=== PATIENT | male | born 1980 | race Caucasian/White ===

== ENCOUNTER 2020-07-05 06:40 | Observation (INO) | payer OTHER, MEDICAID, SELFPAY ==
[2020-07-05] VITALS (19 sets, daily range): BP systolic 112–147; BP diastolic 76–99; PULSE 79–100; RESP 18–24; TEMP 35.9–36.6; O2SAT 99–100; BMI 36.5; BMI 80.4
--- NOTE | ~2020-07-05 | CT_ITS ---
EXAMINATION: CT brain wo con DATE: 07/05/2020 07:22 INDICATION: Syncope TECHNIQUE: Computed tomography (CT) of the head was performed without intravenous contrast. Sagittal and coronal reconstructions were performed. The mA was adjusted according to patient size. Iterative reconstruction technique was employed. The dose-length product was 605.33 mGy-cm. COMPARISON: None FINDINGS: No acute intracranial hemorrhage or acute infarction. Suggestion of a small arachnoid cyst along the left side of the anterior falx. Ventricles are normal and symmetric. No masses identified. The orbits , paranasal sinuses and mastoid air cells are normal. IMPRESSION: 1. Normal brain. No acute intracranial process. Reviewed, dictated and finalized at location A. E PRODUCTS SUPERVISOR
--- NOTE | ~2020-07-05 | US_ITS ---
EXAMINATION: US right upper quadrant DATE: 07/06/2020 09:58 INDICATION: Abnormal liver function tests TECHNIQUE: Multiple grayscale and Doppler ultrasound images of the abdomen were obtained. COMPARISON: None available FINDINGS: Bowel gas obscures visualization of the pancreas. The visualized portions of the pancreas a re unremarkable. The liver demonstrates increased echogenicity, heterogenous echotexture, and decreas ed through transmission. No surface nodularity. Normal hepatopetal flow in the main portal vein. The gallbladder is contracted but normal in appearance with no abnormal wall thickening, pericholecystic fluid or stones. The normal common bile duct measures 4 mm. There was no sonographic Naranjo sign. IMPRESSION: 1. Diffuse hepatic steatosis. Reviewed, dictated and finalized at location A. PRESS OPERATOR
--- NOTE | ~2020-07-05 | MR_ITS ---
EXAMINATION: MR cervical spine wo/w con DATE: 07/05/2020 14:07 INDICATION: Leg weakness. TECHNIQUE: Magnetic resonance imaging (MRI) of the cervical spine was performed without and with 20 m L MultiHance intravenous contrast. Sequences included sagittal and axial T2-weighted FSE, sagittal T2 -weighted FS FSE, and sagittal and axial T1-weighted FSE. Postcontrast sequences included sagittal an d axial T1-weighted FS FSE. COMPARISON: None FINDINGS: There is hypolordosis of cervical spine. Vertebral body heights and intervertebral disc hei ghts are normal. The spinal cord signal intensity is normal. The following disc levels are specifical ly discussed: C2-C3: The disc does not extend beyond the endplate margin. There is no uncovertebral joint osteoarth ritis. There is no facet joint osteoarthritis. There is no neural foraminal stenosis. There is no andi tral canal stenosis. C3-C4: The disc does not extend beyond the endplate margin. There is mild bilateral uncovertebral caden nt osteoarthritis. There is no facet joint osteoarthritis. There is no neural foraminal stenosis. The re is no central canal stenosis. C4-C5: The disc does not extend beyond the endplate margin. There is no uncovertebral joint osteoarth ritis. There is no facet joint osteoarthritis. There is no neural foraminal stenosis. There is no andi tral canal stenosis. C5-C6: The disc does not extend beyond the endplate margin. There is no uncovertebral joint osteoarth ritis. There is mild bilateral facet joint osteoarthritis. There is no neural foraminal stenosis. The re is no central canal stenosis. C6-C7: The disc does not extend beyond the endplate margin. There is no uncovertebral joint osteoarth ritis. There is no facet joint osteoarthritis. There is no neural foraminal stenosis. There is no andi tral canal stenosis. C7-T1: The disc does not extend beyond the endplate margin. There is no uncovertebral joint osteoarth ritis. There is no facet joint osteoarthritis. There is no neural foraminal stenosis. There is no andi tral canal stenosis. IMPRESSION: 1. Minimal cervical spondylosis. Reviewed, dictated and finalized at location B. OLOGIST
--- NOTE | ~2020-07-05 | XR_ITS ---
EXAMINATION: XR chest 1V DATE: 07/05/2020 07:25 INDICATION: Syncope TECHNIQUE: frontal view of the chest was obtained. COMPARISON: None FINDINGS: The lungs are clear with no focal airspace opacities, pulmonary edema, pleural effusion or pneumothor ax. The cardiomediastinal silhouette is normal. Visualized bones and soft tissues are unremarkable. IMPRESSION: 1. Normal chest radiograph. Reviewed, dictated and finalized at location A. T LIAISON IMPRESSION: 1. Normal chest radiograph.
--- NOTE | ~2020-07-05 | CT_ITS ---
EXAMINATION: CTA brain carotid DATE: 07/05/2020 08:52 INDICATION: Syncope. Dizziness. TECHNIQUE: Computed tomographic angiography (CTA) of the head was performed with 100 mL Omnipaque-350 intravenous contrast. CTA of the neck was performed with intravenous contrast. Automated exposure co ntrol and iterative reconstruction technique were employed. The dose-length product was 1205.52 mGy-c m. Maximum intensity projection and volume rendered 3D-reconstructions were created by the F[address] st on a separate workstation. COMPARISON: Head CT 07/05/2020 FINDINGS: HEAD CTA: There is no intracranial hemorrhage, acute infarction, or abnormal intracranial mass lesion . The ventricles are normal in size. The mastoid air cells are normal. The orbits are normal. There i s mild mucosal thickening in the maxillary sinuses. Left vertebral artery is dominant. There is no si gnificant stenosis of basilar artery or the posterior cerebral arteries. There is no significant sten osis of the intracranial internal carotid arteries or anterior or middle cerebral arteries. Anterior communicating artery is normal. The posterior communicating arteries are normal. There is no aneurysm . NECK CTA: There are no pathologically enlarged lymph nodes. There is no significant stenosis of the v ertebral arteries. There is no visible plaque in the proximal internal carotid arteries. There is 0% stenosis of the proximal right internal carotid artery relative to normal distal artery lumen diamete r (NASCET criteria). There is 0% stenosis of the proximal left internal carotid artery relative to no rmal distal artery lumen diameter. There is mild cervical spondylosis. IMPRESSION: 1. Normal brain. No aneurysm or significant intracranial arterial stenosis. 2. 0% stenosis of the proximal internal carotid arteries relative to normal distal artery lumen diame ters (NASCET criteria). Reviewed, dictated and finalized at location B. ORK CONTROLLER IMPRESSION: 1. Normal brain. No aneurysm or significant intracranial arterial stenosis. 2. 0% stenosis of the proximal internal carotid arteries relative to normal dis elina artery lumen diameters (NASCET criteria).
--- NOTE | ~2020-07-05 | MR_ITS ---
EXAMINATION: MR brain/brain stem wo/w con DATE: 07/05/2020 14:07 INDICATION: Leg weakness. Syncope. TECHNIQUE: Magnetic resonance imaging (MRI) of the brain and brainstem was performed without and with 20 mL MultiHance intravenous contrast. Sequences included sagittal and axial T1-weighted FSE, axial diffusion-weighted FS EPI, axial T2*-weighted GRE, axial T2-weighted FLAIR Propeller, and axial T2-we ighted Propeller. Postcontrast sequences included axial and coronal T1-weighted FSE. Apparent diffusi on coefficient (ADC) maps were created. COMPARISON: Head CTA 07/05/2020 FINDINGS: There is no intracranial hemorrhage, acute infarction, or abnormal intracranial mass lesion . The ventricles are normal in size. There is mild mucosal thickening in the paranasal. The mastoid a ir cells are normal. The orbits are normal. IMPRESSION: 1. Normal brain. Reviewed, dictated and finalized at location B. CIATE SCIENTIST IMPRESSION: 1. Normal brain.
--- NOTE | 2020-07-05 07:07 | ECG_ITS ---
Measurements Intervals [place] Rate: 93 P: 47 WA: 174 QRS: 26 QRSD: 95 T: 18 QT: 345 QTc: 430 Interpretive Statements SINUS RHYTHM INCOMPLETE RIGHT BUNDLE BRANCH BLOCK BORDERLINE ECG Electronically Signed On 07-05-2020 7:37:17 ULTRA SOUND TECHNICIAN by Joel Long D.O.
--- NOTE | 2020-07-05 07:13 | ED.GENADULT ---
HPI - General Adult General Chief complaint: Syncope Stated complaint: fall with loc tonight, multiple falls this week MANLEY Time Seen by Provider: 07/05/20 07:01 Source: RN notes reviewed History of Present Illness HPI narrative: Patient presents emergency department from home for syncope. Patient states this morning he was in the restroom and fell and he believed at the time he had only been on the ground for approximately 5 minutes however when he got up he had been on the ground for over 2 hours. He states that he just remembers feeling weak prior to the episode he states he has been feeling weak and unsteady on his feet over the past 1 week he states he has had several falls earlier this week were his legs just feel like they are going to give out and he will fall down to the ground he denies any unilateral numbness or weakness of any extremity states he has had intermittent headaches over the past 1 week that change in location of his head he denies any fevers or chills vision changes chest pain shortness of breath nausea vomiting or any other symptoms Related Data Home Medications Medication Instructions Recorded Confirmed alprazolam 1 mg PO BID 08/20/19 07/05/20 dextroamphetamine-amphetamine 20 mg PO DAILY 08/20/19 07/05/20 [Adderall] meloxicam 15 mg PO DAILY 07/05/20 07/05/20 zolpidem 12.5 mg PO HS 07/05/20 07/05/20 Allergies Allergy/AdvReac Type Severity Reaction Status Date / Time No Known Allergies Allergy Verified 07/05/20 07:17 Review of Systems Review of Systems: Narrative: Gen.: Denies fevers or chills Eyes: Denies eye pain or visual change ENT: Denies congestion Respiratory: Denies shortness of breath or cough CV: Denies chest pain or palpitations syncope GI: Denies abdominal pain nausea, emesis or diarrhea Musculoskeletal: Denies back pain or muscle pain Neuro: Denies numbness, tingling, reports weakness Skin: Denies rash Except as documented, all other systems reviewed and negative [facility] Past Medical History Medical History (Updated 07/05/20 @ 10:05 by Coleman Linda DO) ADHD Social History Social History (Updated 07/05/20 @ 07:15 by Coleman Linda DO) Smoking status: Never smoker Exam Narrative: Exam Narrative: APPEARANCE: No acute distress, nontoxic, resting in bed HEENT: Normocephalic, atraumatic, OMM, TMs clear bilaterally EYES: PERRL, EOMI NECK: Supple, nontender, full range of motion without pain, no meningismus RESPIRATORY: No respiratory distress, clear to auscultation bilaterally with no rhonchi wheezing or rales CARDIOVASCULAR: RRR s murmur ABDOMINAL: Soft, nontender, nondistended MUSCULOSKELETAL: Moves all extremities. No clubbing, cyanosis or edema. NEURO: A and O ?3, following commands, speech normal, cranial nerves II through XII grossly intact,muscle strength 5 out of 5 bilateral upper and lower extremities SKIN:: Warm, dry. Normal Color PSYCHIATRIC: Normal affect/mood Course Course Emergency Course: Discussed with Dr. Cerda presentation work-up. Agrees with admission at this time request consult to neurology Discussed with Dr. Oswald presentation work-up. Agrees with consult request patient have MRI of the brain and cervical spine Discussed with patient and family results of workup and diagnosis. Discussed need for admission. Patient and family understand and agree to current treatment plan Vital Signs Vital signs: Vital Signs Temperature 97.8 F 07/05/20 06:48 Pulse Rate 100 07/05/20 06:48 Respiratory Rate 18 07/05/20 06:48 Blood Pressure 146/92 H 07/05/20 06:48 Pulse Oximetry 99 07/05/20 06:48 Temperature 97.8 F 07/05/20 06:48 Pulse Rate 85 07/05/20 09:45 Respiratory Rate 20 07/05/20 09:45 Blood Pressure 146/96 H 07/05/20 09:45 Pulse Oximetry 100 07/05/20 09:45 Medical Decision Making Vital Signs Vital Signs: Vital Signs Temperature 97.8 F 07/05/20 06:48 Pulse Rate 100 07/05/20 06:48 Respiratory Rate
[2020-07-05] MEDS: SODIUM CHLORIDE 0.9% IV 1,000 ML 999 ML IV CONT (07:38)
[2020-07-05 07:42] LABS: Basophils Absolute Auto 0.1 K/mm3 (0.0-0.1); Basophils Percent Auto 0.9 % (0.2-1.2); Eosinophils Absolute Auto 0.2 K/mm3 (0-0.3); Eosinophils Percent Auto 3.2 % (0-4.4); Hematocrit 43.1 % (42.0-52.0); Hemoglobin 15.2 g/dL (14.0-18.0); Immature Granulocyte Absolute 0.05 K/mm3 (0.00-0.031); Immature Granulocyte Percent A 0.7 % (0-0.5); Lymphocytes Absolute Auto 1.89 K/mm3 (0.9-3.2); Lymphocytes Percent Auto 25.4 % (18.3-44.2); Mean Corpuscular HGB Conc 35.3 g/dl (32-36); Mean Corpuscular Hemoglobin 31.8 pg (26-34); Mean Corpuscular Volume 90.2 fl (80-100); Mean Platelet Volume 9.5 fl (7.4-10.4); Monocytes Absolute Auto 0.5 K/mm3 (0.1-0.6); Monocytes Percent Auto 6.7 % (2.6-8.5); Neutrophils Absolute Auto 4.7 K/mm3 (1.3-6.7); Neutrophils Percent Auto 63.1 % (45.5-73.1); Platelet Count Result 197 k/mm3 (150-375); Red Blood Count 4.78 M/mm3 (4.6-6.20); Red Cell Distribution Width 13.2 % (11.5-14.5); White Blood Count 7.4 K/mm3 (4.5-10.0)
[2020-07-05 07:52] LABS: Prothrombin Time 13.3 Seconds (11.1-14.7)
[2020-07-05 07:53] LABS: Partial Thromboplastin Time 28.9 SECONDS (22.3-36.8)
[2020-07-05 07:54] LABS: Alanine Aminotransferase 77 U/L (4-50); Albumin Level 4.2 g/dL (3.5-5.1); Alkaline Phosphatase 48 U/L (38-126); Anion Gap 10 mmol/L (8-16); Aspartate Amino Transferase 45 U/L (17-59); Bilirubin,Total 0.6 mg/dL (0.2-1.3); Blood Urea Nitrogen 10 mg/dL (9-20); Calcium 9.3 mg/dL (8.4-10.2); Carbon Dioxide 25 mmol/L (22-30); Chloride 105 mmol/L (98-107); Creatine Kinase 237 U/L (55-170); Estimated CRCL calculation 96 ml/min; Estimated Glomerular Filt Rate > 60; Glucose 103 mg/dL (75-110); Sodium 140 mmol/L (137-145)
[2020-07-05 08:08] LABS: Troponin I < 0.012 ng/mL (0.000-0.034)
[2020-07-05 08:10] LABS: Add Urine Microscopic? NO; Appearance Urine Clear (Clear); Bilirubin Urine Negative (Negative); Blood Urine Negative (Negative); Color Urine Yellow (Yellow); Glucose Urine UA Negative (Negative); Ketones Urine Negative (Negative); Leukocyte Esterase Ur Negative LEU/UL (Negative); Nitrate Urine Negative (Negative); Protein Urine Negative (Negative); Specific Grav Ur 1.024 (1.001-1.035); Urobilinogen Urine Negative mg/dL (<2.0)
--- NOTE | 2020-07-05 11:15 | ADMGEN ---
This patient, Raman Alston, was admitted to Medical Room 252-01. Patient/family oriented to hospital policies and general routines including ID bracelet, bed and alarms, visiting hours, pain management, procedures, bathroom and other care routines, personal items, smoking policy, room service/diet, and visiting hours. Information on how to activate the Rapid Response Team has been discussed. Patient/Family are encouraged to report perceived risks to care and to ask questions if they do not understand what they are told or what they should do.
--- NOTE | 2020-07-05 11:27 | WPDNEURCNPN ---
Assessment and Plan Assessment and plan (1) Syncope: Code(s): R55 - Syncope and collapse Status: Acute (2) Gait instability: Code(s): R26.81 - Unsteadiness on feet Status: Acute (3) ADHD: Code(s): F90.9 - Attention-deficit hyperactivity disorder, unspecified type Status: Acute Additional Plan rule out seizure Consult date: 07/05/20 Time Seen: 11:27 HPI: Raman Alston is a 39 year old male admitted to the hospital through the emergency room with the information that he was in the restroom this morning and fell and was on the ground for [id number] but when he woke up he has lies he was on the ground for 2 hours he remember only feeling weak prior to the episodes and somewhat unsteady has had several falls earlier this week give no history of weakness and numbness of 1 side or other side . Has ongoing history of ADHD no smoking. Initial evaluation in the emergency room reveals a routine lab normal except the CPK was 237 head neck CTA negative, CT of the head also negative Review of Systems Review of Systems: All systems reviewed & are unremarkable except as noted in HPI and below PMFSH Past Medical History Medical History ADHD Social History Social History Smoking status: Never smoker Second hand tobacco smoke exposure: No Alcohol intake: current Drinks per week: 6 Substance use type: does not use Gender identity (if verbalized by the patient): Male Spiritual care concerns: No Meds Home Medications and Allergies Home Medications Medication Instructions Recorded Confirmed Type alprazolam 1 mg PO TID 08/20/19 07/05/20 History dextroamphetamine-amphetamine 20 mg PO TID PRN 08/20/19 07/05/20 History [Adderall] meloxicam 15 mg PO BID 07/05/20 07/05/20 History zolpidem 12.5 mg PO HS 07/05/20 07/05/20 History Allergies Allergy/AdvReac Type Severity Reaction Status Date / Time No Known Allergies Allergy Verified 07/05/20 07:17 Vital Signs Vital Signs - 24 hr 07/05/20 06:48 07/05/20 07:16 07/05/20 07:31 Temperature 36.6 C Pulse Rate 100 99 93 Respiratory Rate 18 20 Blood Pressure 146/92 H 137/94 H 144/99 H Pulse Oximetry 99 100 07/05/20 07:32 07/05/20 07:33 07/05/20 07:44 Temperature Pulse Rate 94 100 100 Respiratory Rate Blood Pressure 137/98 H 112/76 112/76 Pulse Oximetry 07/05/20 08:03 07/05/20 08:55 07/05/20 09:45 Temperature Pulse Rate 88 87 85 Respiratory Rate 20 20 20 Blood Pressure 133/99 H 143/88 H 146/96 H Pulse Oximetry 100 100 100 07/05/20 10:20 07/05/20 10:44 Temperature Pulse Rate 84 84 Respiratory Rate 20 20 Blood Pressure 128/86 128/86 Pulse Oximetry 100 100 Exam Narrative: Exam Narrative: exam revealed him to be awake alert cooperative in no obvious acute distress speech nor dysphasic no dysarthric nor dysphonic able to ambulate independently cranial examination is normal motor examination revealed no drift from 1 or other side reflexes symmetrical plantars are downgoing Results Labs CBC & Chem 7: 07/05/20 07:32 07/05/20 07:32 Labs: Short CBC 07/05/20 Range/Units 07:32 WBC 7.4 (4.5-10.0) K/mm3 Hgb 15.2 (14.0-18.0) g/dL Hct 43.1 (42.0-52.0) % Plt Count 197 (150-375) k/mm3 BMP 07/05/20 07:32 Sodium 140 Potassium 4.0 Chloride 105 Carbon Dioxide 25 BUN 10 Creatinine 1.10 Glucose 103 Calcium 9.3 Cardiac Enzymes 07/05/20 07/05/20 Range/Units 07:32 07:32 Total Creatine Kinase 237 H (55-170) U/L Troponin I < 0.012 (0.000-0.034) ng/mL Liver Function 07/05/20 Range/Units 07:32 Total Bilirubin 0.6 (0.2-1.3) mg/dL AST 45 (17-59) U/L ALT 77 H (4-50) U/L Alkaline Phosphatase 48 (38-126) U/L Albumin 4.2 (3.5-5.1) g/dL Urine 07/05/20 Range/Units 08:01 Uri
--- NOTE | 2020-07-05 14:15 | PM.IMHP ---
H&P: HPI History of Present Illness Date/Time: 07/05/20 14:15 Chief complaint: Suspected syncopal episode. Narrative: Raman Alston is a 39-year-old male with ADHD and anxiety who presented to the emergency department earlier today from home for evaluation of a suspected syncopal episode. He had a long day of work yesterday, mostly Zoom meetings on the computer, and before he knew it was nearly 22:30. He figured it would be too late to take his Ambien so he jacklyn up a bath to help him relax so he could fall asleep easier. Sometime around 05:00 he awoke on the bathroom rug face down but he does not know how he got there and he could tell he never even got around to taking a bath. He goes on to say that for the last week or so he has just ?felt off? with several intermittent symptoms including weakness to the point where his right leg sometimes gives out while standing, causing him to fall back into the chair and difficulties making out words on the computer screen. He has gone through a lot of stress recently with the loss of his mother and change in jobs and he feels that his just caught up with him. His significant other mentions that he has also had mood swings recently which is not typical. He does suffer from migraine headaches, with the last being approximately 2 weeks ago. He has no history of syncope or seizures. The only new medication he has been on recently is the Ambien however he tells me he has tolerated that very well without side effects and again he did not even take it last evening. He drinks alcohol socially on the weekends, not in significant quantities. He is compliant with his home medication and never takes any more than his prescribed doses. He denies vertigo, ataxia, dysarthria, and dysphagia. No chest pain, palpitations, or history of cardiac dysrhythmia. Review of Systems Review of Systems: Narrative: Twelve systems were reviewed with pertinent positives and negatives as per HPI. No fever, chills, or sweats. Occasional migraine headaches for which she will take sumatriptan. No recent cold or flu symptoms. He denies exposure to those positive for COVID-19. No nausea or vomiting but he has had a decreased appetite which he attributes to being depressed about the recent loss of his mother. He will occasionally have diarrhea when he has anxiety or stress. No dysuria. He suffers from arthritis in his feet for which she usually takes meloxicam but does on occasion take Tylenol 3 when it gets especially bad. No suicidal or homicidal ideations. Except as documented, all other systems were reviewed and are negative. [facility] Past Medical History Medical History (Updated 07/05/20 @ 17:56 by Tami Robbins PA-C) Anxiety Arthritis of both feet Asthma Seems to be related to seasonal changes. Attention deficit hyperactivity disorder Depression Migraine headache Pre-hypertension Surgical History Surgical History (Updated 07/05/20 @ 17:53 by Tami Robbins PA-C) No history of previous surgery Family History Family History (Updated 07/05/20 @ 17:54 by Tami Robbins PA-C) Mother Heart disease COPD (chronic obstructive pulmonary disease) Social History Social History (Updated 07/05/20 @ 17:54 by Tami Robbins PA-C) Social History: Resides in [place] with his significant other and their dog. He works for [employer] in [place]. No tobacco or illicit substance use. Consumes perhaps 6 alcoholic beverages a week. He has no children. He designates his significant other, Bruce Roberts, as his surrogate decision maker and he wishes to be a full code. Smoking status: Never smoker Second hand tobacco smoke exposure: No Alcohol intake: current Drinks per week: 6 Substance use type: does not use Gender identity (if verbalized by the patient): Male Spiritual care concerns: No Meds Home Medications and Allergies Home Medications Medication I
[2020-07-05 15:29] LABS: Troponin I < 0.012 ng/mL (0.000-0.034)
[2020-07-05] MEDS: ALPRAZolam (*CRX) 0.5 MG TABLET 1 MG PO (18:15)
[2020-07-05] MEDS: ACETAMINOPHEN/CODEINE (*CRX) 300/30 MG TABLET 1 TAB PO (18:15)
[2020-07-05 19:27] LABS: Troponin I < 0.012 ng/mL (0.000-0.034)
[2020-07-05] MEDS: MELOXICAM 7.5 MG TABLET 15 MG PO (20:26)
[2020-07-06] VITALS: PULSE 83
[2020-07-06 04:00] VITALS: PULSE 63
[2020-07-06 06:00] VITALS: BP 134/79; PULSE 69; RESP 20; TEMP 36.1; O2SAT 98
[2020-07-06 06:34] LABS: Alanine Aminotransferase 55 U/L (4-50); Albumin Level 3.4 g/dL (3.5-5.1); Alkaline Phosphatase 50 U/L (38-126); Anion Gap 5 mmol/L (8-16); Aspartate Amino Transferase 28 U/L (17-59); Bilirubin,Total 0.5 mg/dL (0.2-1.3); Blood Urea Nitrogen 10 mg/dL (9-20); Calcium 8.8 mg/dL (8.4-10.2); Carbon Dioxide 29 mmol/L (22-30); Chloride 106 mmol/L (98-107); Creatine Kinase 145 U/L (55-170); Estimated CRCL calculation 158 ml/min; Estimated Glomerular Filt Rate > 60; Glucose 114 mg/dL (75-110); Sodium 140 mmol/L (137-145)
--- NOTE | 2020-07-06 07:21 | P.PNIM_ITS ---
Progress Note: A&P Assessment and Plan (1) Syncope: Qualifiers: Syncope type: unspecified Qualified Code(s): R55 - Syncope and collapse Code(s): R55 - Syncope and collapse Status: Acute Assessment and Plan: * Possibly related to benzodiazepine use * Possibly psychiatric * Possible alcohol withdrawal * Possible seizure * MRI brain, MRI cervical spine, CT brain, CTA neck and brain all negative * EEG results pending * Urine drug screen + amphetamines, benzodiazepines, opiates (latter likely from hospitalization) * Patient aware of need to abstain from driving and other potentially hazardous activities * He has f/u appt with new PCP on 07/11 and would like to go home today. (2) ADHD: Qualifiers: Attention deficit-hyperactivity disorder type: unspecified Qualified Code(s): F90.9 - Attention-deficit hyperactivity disorder, unspecified type Code(s): F90.9 - Attention-deficit hyperactivity disorder, unspecified type Status: Acute Assessment and Plan: * Currently without therapeutic intervention (3) Abnormal liver enzymes: Code(s): R74.8 - Abnormal levels of other serum enzymes Status: Acute Assessment and Plan: * Pattern suggestive of alcohol use, but likely due to muscle injury * Acute chronic hepatitis screen * Right upper quadrant ultrasound * Alcohol negative (4) supervisor intermediates prescription benzodiazepine use: Code(s): Z79.899 - Other senior care (current) drug therapy Status: Acute Assessment and Plan: * He will d/w his PCP * Hx of bipolar, ADD, anxiety, depression * Takes Adderall 20mg bid-tid, Xanax prn, Ambien prn (new this past week) * Would likely benefit from psych referral Subjective Date/time seen: 07/06/20 07:21 Interval history: 39-year-old male work late on 07/05. He denied taking Ambien or any other recreational drugs. No drinking of alcohol. Awakened at 5:00 a.m. on 07/06 face down on the bathroom floor. No apparent injuries. 07/06: No further spells. Tolerated diet. Showered w/o difficulty. Wants to go home. Review of Systems Review of Systems: All systems reviewed & are unremarkable except as noted in HPI and below Exam Narrative: Exam Narrative: HEENT: EOMI, PERRL, sclerae nonicteric, pharyngeal mucosa pink and intact NECK: No JVD CHEST: Clear to auscultation. Normal effort. HEART: NL S1/S2, regular, no murmur ABDOMEN: BS+, soft, nontender, no mass, no bruits EXTREMITIES: No cyanosis, edema, or clubbing NEUROLOGIC: CN intact and symmetric to inspection. MUSCULOSKELETAL: Tone and strength symmetric. PSYCH: Alert. Oriented to person, place, and time. Objective Data Vital Signs Vital Signs: Vital Signs - 24 hr 07/05/20 07:31 07/05/20 07:32 07/05/20 07:33 Temperature Pulse Rate 93 94 100 Respiratory Rate Blood Pressure 144/99 H 137/98 H 112/76 Pulse Oximetry 07/05/20 07:44 07/05/20 08:03 07/05/20 08:55 Temperature Pulse Rate 100 88 87 Respiratory Rate 20 20 Blood Pressure 112/76 133/99 H 143/88 H Pulse Oximetry 100 100 07/05/20 09:45 07/05/20 10:20 07/05/20 10:44 Temperature Pulse Rate 85 84 84 Respiratory Rate 20 20 20 Blood Pressure 146/96 H 128/86 128/86 Pulse Oximetry 100 100 100 07/05/20 10:50 07/05/20
--- NOTE | 2020-07-06 07:21 | PM.IMPN ---
Progress Note: A&P Assessment and Plan (1) Syncope: Qualifiers: Syncope type: unspecified Qualified Code(s): R55 - Syncope and collapse Code(s): R55 - Syncope and collapse Status: Acute Assessment and Plan: Possibly related to benzodiazepine use Possibly psychiatric Possible alcohol withdrawal Possible seizure MRI brain, MRI cervical spine, CT brain, CTA neck and brain all negative EEG results pending Urine drug screen + amphetamines, benzodiazepines, opiates (latter likely from hospitalization) Patient aware of need to abstain from driving and other potentially hazardous activities He has f/u appt with new PCP on 07/11 and would like to go home today. 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 He denied taking Ambien or any other recreational drugs. No drinking of alcohol. Awakened at 5:00 a.m. on 07/06 face down on the bathroom floor. No apparent injuries. 07/06: No further spells. Tolerated diet. Showered w/o difficulty. Wants to go home. Review of Systems Review of Systems: All systems reviewed & are unremarkable except as noted in HPI and below Exam Narrative: Exam Narrative: HEENT: EOMI, PERRL, sclerae nonicteric, pharyngeal mucosa pink and intact NECK: No JVD CHEST: Clear to auscultation. Normal effort. HEART: NL S1/S2, regular, no murmur ABDOMEN: BS+, soft, nontender, no mass, no bruits EXTREMITIES: No cyanosis, edema, or clubbing NEUROLOGIC: CN intact and symmetric to inspection. MUSCULOSKELETAL: Tone and strength symmetric. PSYCH: Alert. Oriented to person, place, and time. Objective Data Vital Signs Vital Signs: Vital Signs - 24 hr 07/05/20 07:31 07/05/20 07:32 07/05/20 07:33 Temperature Pulse Rate 93 94 100 Respiratory Rate Blood Pressure 144/99 H 137/98 H 112/76 Pulse Oximetry 07/05/20 07:44 07/05/20 08:03 07/05/20 08:55 Temperature Pulse Rate 100 88 87 Respiratory Rate 20 20 Blood Pressure 112/76 133/99 H 143/88 H Pulse Oximetry 100 100 07/05/20 09:45 07/05/20 10:20 07/05/20 10:44 Temperature Pulse Rate 85 84 84 Respiratory Rate 20 20 20 Blood Pressure 146/96 H 128/86 128/86 Pulse Oximetry 100 100 100 07/05/20 10:50 07/05/20 12:44 07/05/20 15:00 Temperature 97.6 F 97.4 F L Pulse Rate 79 81 81 Respiratory Rate 24 H 24 H 24 H Blood Pressure 125/97 H 147/80 H Pulse Oximetry 100 100 100 07/05/20 16:00 07/05/20 16:39 07/05/20 18:15 Temperature 97.4 F L Pulse Rate 94 81 Respiratory Rate 24 H Blood Pressure Pulse Oximetry 100 07/05/20 20:00 07/05/20 21:18 07/06/20 00:00 Temperature 96.7 F L Pulse Rate 86 83 83 Respiratory Rate 18 Blood Pressure 127/76 Pulse Oximetry 100 07/06/20 04:00 07/06/20 06:00 Temperature 97.0 F L Pulse Rate 63 69 Respiratory Rate 20 Blood Pressure 134/79 Pulse Oximetry 98 Intake/Output Intake/Output: Intake & Outpu
[2020-07-06 08:00] VITALS: PULSE 64
[2020-07-06 08:36] LABS: Hematocrit 42.5 % (42.0-52.0); Hemoglobin 14.8 g/dL (14.0-18.0); Mean Corpuscular HGB Conc 34.8 g/dl (32-36); Mean Corpuscular Hemoglobin 31.1 pg (26-34); Mean Corpuscular Volume 89.3 fl (80-100); Mean Platelet Volume 9.7 fl (7.4-10.4); Platelet Count Result 154 k/mm3 (150-375); Red Blood Count 4.76 M/mm3 (4.6-6.20); Red Cell Distribution Width 13.2 % (11.5-14.5); White Blood Count 5.9 K/mm3 (4.5-10.0)
[2020-07-06 08:45] LABS: Ethanol < 10 mg/dL (<10)
[2020-07-06 08:51] LABS: Alanine Aminotransferase 52 U/L (4-50); Albumin Level 3.3 g/dL (3.5-5.1); Alkaline Phosphatase 45 U/L (38-126); Anion Gap 6 mmol/L (8-16); Aspartate Amino Transferase 26 U/L (17-59); Bilirubin,Total 0.4 mg/dL (0.2-1.3); Blood Urea Nitrogen 9 mg/dL (9-20); Calcium 8.7 mg/dL (8.4-10.2); Carbon Dioxide 27 mmol/L (22-30); Chloride 107 mmol/L (98-107); Creatine Kinase 137 U/L (55-170); Estimated CRCL calculation 158 ml/min; Estimated Glomerular Filt Rate > 60; Glucose 116 mg/dL (75-110); Potassium 3.9 mmol/L (3.4-5.0); Sodium 140 mmol/L (137-145)
[2020-07-06 08:52] LABS: Hemoglobin A1C 4.9 % (<5.7)
[2020-07-06 08:54] LABS: Amphetamine Screen Urine Positive (Negative); Barbiturate Screen Urine Negative (Negative); Benzodiazepines Screen Urine Positive (Negative); Cannabinoid Screen Urine Negative (Negative); Cocaine Screen Urine Negative (Negative); Methadone Screen Urine Negative (Negative); Opiate Screen Urine Positive (Negative); Phencyclidine Screen Urine Negative (Negative)
[2020-07-06] MEDS: MELOXICAM 7.5 MG TABLET 15 MG PO (09:00)
[2020-07-06] MEDS: ALPRAZolam (*CRX) 0.5 MG TABLET 1 MG PO (09:00)
[2020-07-06 09:43] LABS: Iron 97 ug/dL (49-181)
[2020-07-06 09:54] LABS: Percent Iron Saturation 29 % (20-50)
--- NOTE | 2020-07-06 11:04 | WPDNEUROPN ---
Progress Note: A&P Assessment and Plan (1) Syncope: Qualifiers: Syncope type: unspecified Qualified Code(s): R55 - Syncope and collapse Code(s): R55 - Syncope and collapse Status: Acute (2) ADHD: Qualifiers: Attention deficit-hyperactivity disorder type: unspecified Qualified Code(s): F90.9 - Attention-deficit hyperactivity disorder, unspecified type Code(s): F90.9 - Attention-deficit hyperactivity disorder, unspecified type Status: Acute Additional Plan syncopal episodes most likely related to multifactorial as documented etiologies with no evidence of intracranial or spinal pathology particularly no evidence of aneurysm patient needs to be referred for the counseling EEG if done will be reviewed otherwise can't be obtained as an outpatient Review of Systems Review of Systems: All systems reviewed & are unremarkable except as noted in HPI and below Objective Data Vital Signs Vital Signs: Vital Signs - 24 hr 07/05/20 12:44 07/05/20 15:00 07/05/20 16:00 Temperature 36.3 C L Pulse Rate 81 81 94 Respiratory Rate 24 H 24 H Blood Pressure 147/80 H Pulse Oximetry 100 100 07/05/20 16:39 07/05/20 18:15 07/05/20 20:00 Temperature 36.3 C L Pulse Rate 81 86 Respiratory Rate 24 H Blood Pressure Pulse Oximetry 100 07/05/20 21:18 07/06/20 00:00 07/06/20 04:00 Temperature 35.9 C L Pulse Rate 83 83 63 Respiratory Rate 18 Blood Pressure 127/76 Pulse Oximetry 100 07/06/20 06:00 Temperature 36.1 C L Pulse Rate 69 Respiratory Rate 20 Blood Pressure 134/79 Pulse Oximetry 98 Intake/Output Intake/Output: Intake & Output 07/03/20 07/04/20 07/05/20 07/06/20 23:59 23:59 23:59 23:59 Intake Total 1360 590 Output Total 400 350 Balance 960 240 Meds/Results Medications: Active Medications Generic Name Dose Route Start Last Admin Trade Name Freq PRN Reason Stop Dose Admin Alprazolam 1 mg 07/05/20 18:00 07/06/20 09:00 Alprazolam (*Crx) 0.5 Mg Tablet PO 1 mg TID PRN Administration Anxiety Meloxicam 15 mg 07/06/20 09:00 07/06/20 09:00 Meloxicam 7.5 Mg Tablet PO 08/04/20 18:11 15 mg QAM LUCAS Administration Radiology Results: ITS Impressions Head CT 07/05/20 07:31 IMPRESSION: 1. Normal brain. No acute intracranial process. Chest X-Ray 07/05/20 07:35 IMPRESSION: 1. Normal chest radiograph. Head/Neck CTA 07/05/20 08:54 IMPRESSION: 1. Normal brain. No aneurysm or significant intracranial arterial stenosis. 2. 0% stenosis of the proximal internal carotid arteries relative to normal distal artery lumen diameters (NASCET criteria). Brain MRI 07/05/20 14:08 IMPRESSION: 1. Normal brain. Cervical Spine MRI 07/05/20 14:16 IMPRESSION: 1. Minimal cervical spondylosis. Labs Labs: Laboratory Results - last 24 hr 07/05/20 07/05/20 07/06/20 14:53 17:51 05:42 WBC RBC Hgb Hct MCV MCH MCHC RDW Plt Count MPV Sodium 140 Potassium 4.0 Chloride 106 Carbon Dioxide 29 Anion Gap 5 L BUN 10 Creatinine 1.10 Estim Creat Clear Calc 158 Estimated GFR > 60 Glucose 114 H Hemoglobin A1c Calcium 8.8 Iron TIBC % Saturation Total Bilirubin 0.5 Direct Bilirubin AST 28 ALT 55 H Alkaline Phosphatase 50 Total Creatine Kinase 145 Troponin I < 0.012 < 0.012 Total Protein 6.0 L Albumin 3.4 L TSH (Reflex) Urine Opiates Screen Urine Methadone Screen Ur Barbiturates Screen Ur Phencyclidine Scrn Ur Amphetamine Screen U Benzodiazepines Scrn Urine Cocaine Screen U Cannabinoids Screen Ethyl Alcohol 07/06/20 07/06/20 07/06/20 05:42 08:14 08:14 WBC 5.9 RBC 4.76 Hgb 14.8 Hct 42.5 MCV 89.3 MCH 31.1 MCHC 34.8 RDW 13.2 Plt Count 154 MPV 9.7 Sodium Potassium Chloride Carbon Dioxide Ani
[2020-07-06 11:11] LABS: Hepatitis B Surface Antigen Negative (Negative)
[2020-07-06 11:16] LABS: HAV RESULT Negative (Negative)
[2020-07-06 11:28] LABS: Hepatitis C Virus Antibody Negative (Negative)
--- NOTE | 2020-07-06 11:31 | P.DS_ITS ---
DS: Admitting Diagnosis Admitting Diagnosis Admitting Diagnosis: Suspected syncopal episode. DS: Discharge Diagnosis Discharge Diagnosis (1) Syncope: Qualifiers: Syncope type: unspecified Qualified Code(s): R55 - Syncope and collapse Code(s): R55 - Syncope and collapse Status: Acute Assessment and Plan: * Possibly related to benzodiazepine use * Possibly psychiatric * Possible alcohol withdrawal * Possible seizure * MRI brain, MRI cervical spine, CT brain, CTA neck and brain all negative * EEG results pending * Urine drug screen + amphetamines, benzodiazepines, opiates (latter likely from hospitalization) * Patient aware of need to abstain from driving and other potentially hazardous activities * He has f/u appt with new PCP on 07/11 and would like to go home today. 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 Status: Acute Assessment and Plan: * He will d/w his PCP * Hx of bipolar, ADD, anxiety, depression * Takes Adderall 20mg bid-tid, Xanax prn, Ambien prn (new this past week) * Would likely benefit from psych referral (4) Abnormal liver enzymes: Code(s): R74.8 - Abnormal levels of other serum enzymes Status: Acute Assessment and Plan: * Pattern suggestive of alcohol use, but likely due to muscle injury * Acute chronic hepatitis screen * Right upper quadrant ultrasound * Alcohol negative DS: Summary Hospital Course Reason for hospitalization: syncope Hospital Course: 39-year-old male work late on 07/05. He denied taking Ambien or any other recreational drugs. No drinking of alcohol. Awakened at 5:00 a.m. on 07/06 face down on the bathroom floor. No apparent injuries. 07/06: No further spells. Tolerated diet. Showered w/o difficulty. Wants to go home. Time Spent with Patient Time attestation: Total time spent providing and/or coordinating discharge services:35 min Exam Narrative: Exam Narrative: HEENT: EOMI, PERRL, sclerae nonicteric, pharyngeal mucosa pink and intact NECK: No JVD CHEST: Clear to auscultation. Normal effort. HEART: NL S1/S2, regular, no murmur ABDOMEN: BS+, soft, nontender, no mass, no bruits EXTREMITIES: No cyanosis, edema, or clubbing NEUROLOGIC: CN intact and symmetric to inspection. MUSCULOSKELETAL: Tone and strength symmetric. PSYCH: Alert. Oriented to person, place, and time. DS: Data Data Completed and Pending Labs on day of discharge: Labs from last 24 hours 07/06/20 07/06/20 07/06/20 08:30 08:15 08:15 WBC RBC Hgb Hct MCV MCH MCHC RDW Plt Count MPV Sodium Potassium Chloride Carbon Dioxide Anion Gap BUN Creatinine Estim Creat Clear Calc Estimated GFR Glucose Hemoglobin A1c 4.9 Calcium Iron TIBC % Saturation Total Bilirubin Direct Bilirubin
--- NOTE | 2020-07-06 11:31 | PM.DS ---
DS: Admitting Diagnosis Admitting Diagnosis Admitting Diagnosis: Suspected syncopal episode. DS: Discharge Diagnosis Discharge Diagnosis (1) Syncope: Qualifiers: Syncope type: unspecified Qualified Code(s): R55 - Syncope and collapse Code(s): R55 - Syncope and collapse Status: Acute Assessment and Plan: Possibly related to benzodiazepine use Possibly psychiatric Possible alcohol withdrawal Possible seizure MRI brain, MRI cervical spine, CT brain, CTA neck and brain all negative EEG results pending Urine drug screen + amphetamines, benzodiazepines, opiates (latter likely from hospitalization) Patient aware of need to abstain from driving and other potentially hazardous activities He has f/u appt with new PCP on 07/11 and would like to go home today. 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: Code(s): Z79.899 - Other terminal superintendent (current) drug therapy Status: Acute Assessment and Plan: He will d/w his PCP Hx of bipolar, ADD, anxiety, depression Takes Adderall 20mg bid-tid, Xanax prn, Ambien prn (new this past week) Would likely benefit from psych referral (4) Abnormal liver enzymes: Code(s): R74.8 - Abnormal levels of other serum enzymes Status: Acute Assessment and Plan: Pattern suggestive of alcohol use, but likely due to muscle injury Acute chronic hepatitis screen Right upper quadrant ultrasound Alcohol negative DS: Summary Hospital Course Reason for hospitalization: syncope Hospital Course: 39-year-old male work late on 07/05. He denied taking Ambien or any other recreational drugs. No drinking of alcohol. Awakened at 5:00 a.m. on 07/06 face down on the bathroom floor. No apparent injuries. 07/06: No further spells. Tolerated diet. Showered w/o difficulty. Wants to go home. Time Spent with Patient Time attestation: Total time spent providing and/or coordinating discharge services:35 min Exam Narrative: Exam Narrative: HEENT: EOMI, PERRL, sclerae nonicteric, pharyngeal mucosa pink and intact NECK: No JVD CHEST: Clear to auscultation. Normal effort. HEART: NL S1/S2, regular, no murmur ABDOMEN: BS+, soft, nontender, no mass, no bruits EXTREMITIES: No cyanosis, edema, or clubbing NEUROLOGIC: CN intact and symmetric to inspection. MUSCULOSKELETAL: Tone and strength symmetric. PSYCH: Alert. Oriented to person, place, and time. DS: Data Data Completed and Pending Labs on day of discharge: Labs from last 24 hours 07/06/20 07/06/20 07/06/20 08:30 08:15 08:15 WBC RBC Hgb Hct MCV MCH MCHC RDW Plt Count MPV Sodium Potassium Chloride Carbon Dioxide Anion Gap BUN Creatinine Estim Creat Clear Calc Estimated GFR Glucose Hemoglobin A1c 4.9 Calcium Iron TIBC % Saturation Total Bilirubin Direct Bilirubin AST ALT Alkaline Phosphatase Total Creatine Kinase 137 Troponin I Total Protein Albumin TSH (Reflex) Urine Opiates Screen Positive A Urine Methadone Screen Negative Ur Barbiturates Screen Negative Ur Phencyclidine Scrn Negative Ur Amphetamine Screen Positive A U Benzodiazepines Scrn Positive A Urine Cocaine Screen Negative U Cannabinoids Screen Negative Ethyl Alcohol Hepatitis A IgM Ab Hep Bs Antigen Hep B Core Total Ab Hepatitis C Ab Screen 07/06/20 07/06/20 07/06/20 08:15 08:15 08:14 WBC RBC Hgb Hct MCV MCH MCHC RDW Plt Count MPV Sodium 140 Potassium 3.9
[2020-07-06 12:00] VITALS: PULSE 82
--- NOTE | 2020-07-08 13:24 | PC.NURSE ---
Attempted to call patient. No answer.
--- NOTE | 2020-07-10 10:08 | WPDNEUROLOGY ---
Neurology EEG Report General Information Date of Study: 07/05/20 TEST eeg DIAGNOSIS syncope CONDITION OF RECORDING awake drowsy and sleep EEG NUMBER [id number] CLINICAL HISTORY patient reported for about a week he has had dizziness, headaches, confusion and has fallen twice. Also says he was unconscious yesterday for about 4 hours EEG DESCRIPTION basic resting occipital frequency consists of low to medium voltage 8 to 10 hertz per 2nd alpha admixed with low-voltage 15 to 18 hertz per 2nd beta. During drowsiness low-voltage beta activity seen diffusely admixed with waxing and waning posterior alpha rhythm. Bilateral symmetrical sleep spindles are seen during sleep hyperventilation not done photic stimulation not done non paroxysmal. Nonfocal. Nonlateralizing. IMPRESSION No significant abnormalities noted
[2020-07-11 20:40] LABS: Hepatitis B Core Ab Total Nonreactive (Nonreactive)
== END 2020-07-06 13:30 | disposition home or self-care (01) ==
LOC: ANHED 10:05 → ANH2MED 11:00
PROVIDERS: Physician Assistant; Admitting Provider Family Medicine; Emergency Provider Emergency Medicine; Visit Provider Internal Medicine
DX: R55 Syncope and collapse (principal); F90.9 Attention-deficit hyperactivity disorder, unspecified type; R03.0 Elevated blood-pressure reading, without diagnosis of hypertension; R74.8 Abnormal levels of other serum enzymes; R26.81 Unsteadiness on feet; F41.8 Other specified anxiety disorders; K76.0 Fatty (change of) liver, not elsewhere classified; M19.071 Primary osteoarthritis, right ankle and foot; M19.072 Primary osteoarthritis, left ankle and foot; Z79.899 Other long term (current) drug therapy
CPT/HCPCS: 36415; 70450; 70496; 70498; 70553; 71045; 72156; 76705; 80048; 80053; 80076; 80307; 81003; 82550; 83036; 83540; 83550; 84443; 84484; 85025; 85027; 85610; 85730; 86704; 86709; 86803; 87340; 93005; 95816; 96360; 99285; A9270; A9577; G0378; J7030; Q9967

== ENCOUNTER 2021-08-26 15:08 | Emergency (ER) | payer OTHER, MEDICAID, SELFPAY ==
[2021-08-26 15:21] VITALS: BP 147/88; PULSE 92; RESP 18; TEMP 36.8; O2SAT 99
--- NOTE | 2021-08-26 16:25 | PC.NURSE ---
This nurse spoke with patient and he stated that he wanted to leave and he would have a follow-up appointment with his doctor tomorrow. This nurse notified the pt of the risks of discharge before MD, and pt stated he understood. Pt then left ER.
== END 2021-08-26 16:26 | disposition left against medical advice (07) ==
LOC: ANHED 16:41
DX: R05.9 Cough, unspecified (principal)
CPT/HCPCS: 99199